=== PATIENT | female | born 1990 | race Caucasian/White ===

== ENCOUNTER 2023-08-16 15:29 | Inpatient (IN) | payer MEDICAID ==
[~2023-08-16] VITALS: Ht 157.5 cm; Wt 75.7 kg
[2023-08-16] MEDS: HYDRALAZINE 20MG/ML VIAL IV ONE (16:27)
[2023-08-16] MEDS: ASPIRIN 81MG TABLET PO ONE (16:27)
[2023-08-16 16:52] LABS: BASOPHILS % 0.4 % (0.0-2.0); DIFFERENTIAL COMMENT 0; EOSINOPHILS % 1.7 % (0.0-5.0); HEMATOCRIT. 34.8 % (36.0-48.0); HEMOGLOBIN. 11.4 g/dL (12.0-16.0); LYMPHOCYTES % 25.1 % (20.0-50.0); MEAN CORPUSCULAR HEMOGLOBIN 25.8 pg (28.0-32.0); MEAN CORPUSCULAR HGB CONC 32.6 g/dL (31.0-37.0); MEAN PLATELET VOLUME 8.7 fl (7.4-10.4); MONOCYTES % 6.8 % (2.0-8.0); PLATELET 340 x1000/uL (130-400); RED BLOOD CELL COUNT 4.41 mill/uL (4.2-5.4); RED CELL DISTRIBUTION WIDTH 16.5 % (11.6-14.6)
[2023-08-16 16:56] LABS: CHLORIDE 105 mEq/L (98-107); POTASSIUM 3.4 mEq/L (3.5-5.1); SODIUM 138 mEq/L (136-145)
[2023-08-16 16:57] LABS: CARBON DIOXIDE 28 mEq/L (21-32)
[2023-08-16 16:58] LABS: CALCIUM 9.2 mg/dL (8.7-10.4)
[2023-08-16 17:01] LABS: PROTHROMBIN TIME 10.7 sec (9.6-11.0)
[2023-08-16 17:02] LABS: CREATININE 1.1 mg/dL (0.6-1.0); GLUCOSE 101 mg/dL (70-105); UREA NITROGEN BLOOD 17 mg/dL (9-23)
[2023-08-16 17:10] LABS: TROPONIN I HIGH SENSITIVITY 38 ng/L (3.0-34)
[2023-08-16 18:26] LABS: TROPONIN I HIGH SENSITIVITY 41 ng/L (3.0-34)
[2023-08-16] MEDS ORDERED: GUAIFENESIN 200MG/10ML SUGAR FREE UDC PO PRN (19:00)
[2023-08-16] MEDS ORDERED: MAGNESIUM/ALUMINUM HYDROXIDE/SIMETHICONE 30ML UDC PO PRN (19:00)
[2023-08-16] MEDS ORDERED: IPRATROPIUM/ALBUTEROL 0.5-3(2.5)MG/3ML NEB HHN PRN (19:00)
[2023-08-16] MEDS ORDERED: DOCUSATE SODIUM 100MG CAPSULE PO PRN (19:00)
[2023-08-16] MEDS ORDERED: ACETAMINOPHEN 325MG TABLET PO PRN (19:00)
[2023-08-16] MEDS ORDERED: CLONIDINE 0.1MG TABLET PO PRN (19:00)
[2023-08-16] MEDS ORDERED: NALOXONE HCL 0.4MG/ML VIAL IV PRN (19:15)
[2023-08-16] MEDS: POTASSIUM CHLORIDE 20MEQ TABLET SR PO NR (19:15)
[2023-08-16] MEDS: ENOXAPARIN 40MG/0.4ML SYR SUBCUT SCH (20:56)
[2023-08-16] MEDS: FAMOTIDINE 20MG TABLET PO SCH (20:58)
[2023-08-16] MEDS: ONDANSETRON HCL 4MG/2ML INJ IV PRN (20:59)
[2023-08-16] MEDS: HYDRALAZINE 20MG/ML VIAL IV PRN (21:08)
[2023-08-16 21:29] LABS: TROPONIN I HIGH SENSITIVITY 40 ng/L (3.0-34)
[2023-08-16 23:00] VITALS: BP 181/108; PULSE 83; RESP 18; TEMP 97
[2023-08-17] VITALS (7 sets, daily range): BP systolic 100–184; BP diastolic 54–109; PULSE 62–86; RESP 18–19; TEMP 97–98.2
[2023-08-17] MEDS: HYDROCODONE/ACETAMINOPHEN 5/325MG TABLET PO PRN (05:58)
[2023-08-17 06:54] LABS: BASOPHILS % 0.2 % (0.0-2.0); DIFFERENTIAL COMMENT 0; HEMATOCRIT. 36.6 % (36.0-48.0); HEMOGLOBIN. 11.7 g/dL (12.0-16.0); LYMPHOCYTES % 10.1 % (20.0-50.0); MEAN CORPUSCULAR HEMOGLOBIN 25.6 pg (28.0-32.0); MEAN CORPUSCULAR VOLUME 79.8 fL (81.0-99.0); MEAN PLATELET VOLUME 9.7 fl (7.4-10.4); MONOCYTES % 2.3 % (2.0-8.0); NEUTROPHILS % 87.4 % (40.0-76.0); PLATELET 335 x1000/uL (130-400); RED BLOOD CELL COUNT 4.58 mill/uL (4.2-5.4); RED CELL DISTRIBUTION WIDTH 17.3 % (11.6-14.6); WHITE BLOOD COUNT 15.3 x1000/uL (4.5-11.0)
[2023-08-17 07:02] LABS: CARBON DIOXIDE 18 mEq/L (21-32); CHLORIDE 103 mEq/L (98-107); POTASSIUM 3.3 mEq/L (3.5-5.1); SODIUM 137 mEq/L (136-145)
[2023-08-17 07:03] LABS: CALCIUM 9.5 mg/dL (8.7-10.4)
[2023-08-17 07:07] LABS: CREATININE 1.3 mg/dL (0.6-1.0); GLUCOSE 168 mg/dL (70-105)
[2023-08-17 07:08] LABS: ALANINE AMINOTRANSFERASE 24 IU/L (10-49); LDL CHOLESTEROL 158 mg/dL (5-100); PROTEIN TOTAL 7.6 g/dL (6.0-8.3); THYROID STIMULATING HORMONE 0.93 uIU/mL (0.55-4.78); TRIGLYCERIDE 228 mg/dL (0-150); UREA NITROGEN BLOOD 16 mg/dL (9-23)
[2023-08-17 07:09] LABS: ALBUMIN 4.4 g/dL (3.2-4.8); ASPARTATE AMINOTRANSFERASE 18 IU/L (<34)
[2023-08-17 07:10] LABS: BILIRUBIN TOTAL 0.5 mg/dL (0.1-1.0); CHOLESTEROL 224 mg/dL (<200); CREATINE KINASE 86 IU/L (34-145); HDL CHOLESTEROL 43 mg/dL (>65); PHOSPHORUS 3.8 mg/dL (2.5-4.9)
[2023-08-17 08:50] LABS: TROPONIN I HIGH SENSITIVITY 37 ng/L (3.0-34)
[2023-08-17] MEDS ORDERED: AMLODIPINE 10MG TABLET PO SCH (09:00)
[2023-08-17] MEDS: METOPROLOL TARTRATE 50MG TABLET PO SCH (09:09)
[2023-08-17] MEDS: ENOXAPARIN 60MG/0.6ML SYR SUBCUT SCH (09:47)
[2023-08-17] MEDS: ASPIRIN 81MG TABLET PO SCH (09:47)
[2023-08-17] MEDS: CLONIDINE 0.2MG TABLET PO PRN (10:59)
[2023-08-17] MEDS: ACETAMINOPHEN 325MG TABLET PO PRN (11:02)
[2023-08-17 11:38] LABS: HCG SCREEN NEGATIVE
[2023-08-17 11:46] LABS: T4 FREE 1.61 ng/dL (0.89-1.76)
[2023-08-17 12:52] LABS: TROPONIN I HIGH SENSITIVITY 1044 ng/L (3.0-34)
[2023-08-17 16:27] LABS: CLARITY URINE CLOUDY (CLEAR); COLOR URINE YELLOW (YELLOW); GLUCOSE URINE NEGATIVE (NEGATIVE); KETONES URINE 1+ (NEGATIVE); LEUKOCYTE ESTERASE URINE NEGATIVE (NEGATIVE); NITRITE URINE NEGATIVE (NEGATIVE); OCCULT BLOOD URINE 2+ (NEGATIVE); PH URINE 6.5 (4.5-8.0); PROTEIN URINE 3+ (NEGATIVE); UROBILINOGEN URINE 0.2 E.U./dL (0.2-1.0)
[2023-08-17] MEDS: PANTOPRAZOLE SODIUM 40 MG/VIAL IV SCH (16:45)
[2023-08-17] MEDS: ASPIRIN 325MG EC TABLET PO NR (16:45)
[2023-08-17 17:07] LABS: *AMPHETAMINES SCREEN URINE NEGATIVE (NEGATIVE)
[2023-08-17 17:08] LABS: *BARBITURATES SCREEN URINE NEGATIVE (NEGATIVE); *BENZODIAZEPINES SCREEN URINE NEGATIVE (NEGATIVE); *COCAINE SCREEN URINE NEGATIVE (NEGATIVE); ECSTASY MDMA SCREEN URINE NEGATIVE (NEGATIVE); METHADONE URINE SCREEN NEGATIVE (NEGATIVE); OPIATES URINE SCREEN PRESUMPTIVE POSITIVE (NEGATIVE); PHENCYCLIDINE URINE SCREEN NEGATIVE (NEGATIVE)
[2023-08-17 17:09] LABS: CREATININE URINE RANDOM 154.2 mg/dL
[2023-08-17 18:00] LABS: CARBON DIOXIDE 24 mEq/L (21-32); CHLORIDE 101 mEq/L (98-107); POTASSIUM 3.9 mEq/L (3.5-5.1); SODIUM 138 mEq/L (136-145)
[2023-08-17 18:01] LABS: CALCIUM 8.9 mg/dL (8.7-10.4)
[2023-08-17 18:05] LABS: GLUCOSE 134 mg/dL (70-105)
[2023-08-17 18:06] LABS: UREA NITROGEN BLOOD 21 mg/dL (9-23)
[2023-08-17 18:07] LABS: CREATINE KINASE 176 IU/L (34-145)
[2023-08-17 18:08] LABS: CREATININE 2.6 mg/dL (0.6-1.0); PHOSPHORUS 5.2 mg/dL (2.5-4.9)
[2023-08-17 18:52] LABS: HYALINE CASTS URINE 0-5 /lpf; SQUAMOUS EPITHELIAL CELL URINE 3+ /lpf (RARE/1+)
[2023-08-17 18:53] LABS: URIC ACID CRYSTALS URINE 1+ /lpf
[2023-08-17 18:54] LABS: RBC URINE 0-2 /hpf (0-2); WBC URINE 0-2 /hpf (0-2)
[2023-08-17 18:55] LABS: BACTERIA URINE 2+
[2023-08-17] MEDS: ATORVASTATIN CALCIUM 40MG TABLET PO SCH (21:02)
[2023-08-17 23:20] LABS: TROPONIN I HIGH SENSITIVITY 5400 ng/L (3.0-34)
[2023-08-18] VITALS (7 sets, daily range): BP systolic 103–139; BP diastolic 54–89; PULSE 52–79; RESP 17–18; TEMP 97.3–98.8
[2023-08-18] MEDS: SODIUM CHLORIDE 0.9% 500 ML IV ONE (01:15)
[2023-08-18 06:43] LABS: BASOPHILS % 0.3 % (0.0-2.0); DIFFERENTIAL COMMENT 0; EOSINOPHILS % 1.3 % (0.0-5.0); HEMATOCRIT. 32.9 % (36.0-48.0); HEMOGLOBIN. 10.9 g/dL (12.0-16.0); LYMPHOCYTES % 35.4 % (20.0-50.0); MEAN CORPUSCULAR HEMOGLOBIN 26.3 pg (28.0-32.0); MEAN CORPUSCULAR VOLUME 79.8 fL (81.0-99.0); MEAN PLATELET VOLUME 9.2 fl (7.4-10.4); PLATELET 330 x1000/uL (130-400); RED BLOOD CELL COUNT 4.13 mill/uL (4.2-5.4); RED CELL DISTRIBUTION WIDTH 17.8 % (11.6-14.6); WHITE BLOOD COUNT 9.5 x1000/uL (4.5-11.0)
[2023-08-18 07:02] LABS: POTASSIUM 3.7 mEq/L (3.5-5.1)
[2023-08-18 07:03] LABS: CALCIUM 8.9 mg/dL (8.7-10.4)
[2023-08-18 07:08] LABS: CREATININE 2.5 mg/dL (0.6-1.0)
[2023-08-18] MEDS ORDERED: DEXT 5%/0.45% NACL 1000ML 1,000 ML IV SCH (08:00)
[2023-08-18] MEDS: SODIUM CHLORIDE 0.9% 1,000 ML IV ONE (09:02)
[2023-08-18] MEDS: CLOPIDOGREL 75MG TABLET PO NR (10:19)
[2023-08-18] MEDS: SODIUM CHLORIDE 0.9% 1,000 ML IV SCH (11:00)
[2023-08-18 17:38] LABS: CREATININE URINE RANDOM 104.7 mg/dL
[2023-08-19] VITALS: BP 124/71; PULSE 75; RESP 17; TEMP 97.8
[2023-08-19 00:35] LABS: TROPONIN I HIGH SENSITIVITY 3775 ng/L (3.0-34)
[2023-08-19 04:00] VITALS: BP 128/84; PULSE 76; RESP 18; TEMP 98.5
[2023-08-19 05:57] LABS: POTASSIUM 3.9 mEq/L (3.5-5.1)
[2023-08-19 05:58] LABS: CALCIUM 8.4 mg/dL (8.7-10.4)
[2023-08-19 06:32] LABS: BASOPHILS % 0.3 % (0.0-2.0); EOSINOPHILS % 1.5 % (0.0-5.0); HEMATOCRIT. 31.7 % (36.0-48.0); HEMOGLOBIN. 10.1 g/dL (12.0-16.0); LYMPHOCYTES % 33.7 % (20.0-50.0); MEAN CORPUSCULAR HEMOGLOBIN 25.7 pg (28.0-32.0); MEAN CORPUSCULAR HGB CONC 31.7 g/dL (31.0-37.0); MEAN CORPUSCULAR VOLUME 80.9 fL (81.0-99.0); MEAN PLATELET VOLUME 9.4 fl (7.4-10.4); MONOCYTES % 7.8 % (2.0-8.0); NEUTROPHILS % 56.7 % (40.0-76.0); PLATELET 286 x1000/uL (130-400); RED BLOOD CELL COUNT 3.92 mill/uL (4.2-5.4)
[2023-08-19 06:39] LABS: CREATININE 1.4 mg/dL (0.6-1.0)
[2023-08-19 08:00] VITALS: BP 187/117; PULSE 54; RESP 17; TEMP 97.8
[2023-08-19] MEDS: CLOPIDOGREL 75MG TABLET PO SCH (08:28)
[2023-08-19] MEDS: ENOXAPARIN 100MG/ML SYR SUBCUT SCH (08:29)
[2023-08-19] MEDS ORDERED: LOSARTAN 50 MG TABLET PO SCH (09:00)
[2023-08-19] MEDS: CLONIDINE 0.2MG TABLET PO PRN (09:13)
[2023-08-19] MEDS: AMLODIPINE 10MG TABLET PO SCH (11:09)
[2023-08-19] MEDS: ISOSORBIDE MONONITRATE 30MG TABLET SR 24HR PO SCH (11:09)
[2023-08-19 12:00] VITALS: BP 139/87; PULSE 60; RESP 17; TEMP 97.8
[2023-08-19] MEDS ORDERED: HYDRALAZINE HCL 50MG TABLET PO SCH (14:00)
[2023-08-19 15:54] LABS: TROPONIN I HIGH SENSITIVITY 4247 ng/L (3.0-34)
[2023-08-19 16:00] VITALS: BP 130/83; PULSE 66; RESP 18; TEMP 98.2
[2023-08-19 20:00] VITALS: BP 126/79; PULSE 76; RESP 17; TEMP 98.5
[2023-08-19] MEDS ORDERED: ENOXAPARIN 80MG/0.8ML SYR SUBCUT SCH (21:00)
[2023-08-20] VITALS: BP 127/70; PULSE 72; RESP 18; TEMP 98.7
[2023-08-20 01:23] LABS: TROPONIN I HIGH SENSITIVITY 4872 ng/L (3.0-34)
[2023-08-20 04:00] VITALS: BP 123/86; PULSE 74; RESP 17; TEMP 97.8
[2023-08-20 07:06] LABS: BASOPHILS % 0.3 % (0.0-2.0); EOSINOPHILS % 1.3 % (0.0-5.0); HEMOGLOBIN. 9.5 g/dL (12.0-16.0); LYMPHOCYTES % 28.8 % (20.0-50.0); MEAN CORPUSCULAR HEMOGLOBIN 25.6 pg (28.0-32.0); MEAN CORPUSCULAR HGB CONC 31.8 g/dL (31.0-37.0); MEAN CORPUSCULAR VOLUME 80.6 fL (81.0-99.0); MEAN PLATELET VOLUME 9.4 fl (7.4-10.4); MONOCYTES % 8.3 % (2.0-8.0); NEUTROPHILS % 61.3 % (40.0-76.0); PLATELET 278 x1000/uL (130-400); RED BLOOD CELL COUNT 3.72 mill/uL (4.2-5.4); RED CELL DISTRIBUTION WIDTH 16.9 % (11.6-14.6); WHITE BLOOD COUNT 8.6 x1000/uL (4.5-11.0)
[2023-08-20 07:11] LABS: POTASSIUM 4.1 mEq/L (3.5-5.1)
[2023-08-20 07:12] LABS: CALCIUM 8.5 mg/dL (8.7-10.4)
[2023-08-20 07:16] LABS: CREATININE 1.1 mg/dL (0.6-1.0)
[2023-08-20 08:00] VITALS: BP 178/96; PULSE 60; RESP 22; TEMP 97.9
[2023-08-20] MEDS ORDERED: LIDOCAINE HCL 1% 20ML VIAL (Pyxis) INJ ONE (09:09)
[2023-08-20] MEDS ORDERED: HEPARIN 1000 UNITS/ML 10ML ONE (09:09)
[2023-08-20] MEDS ORDERED: IODIXANOL 320MG/ML 100 ML BOTTLE IV ONE (09:09)
[2023-08-20 09:12] LABS: ANTI-NUCLEAR ANTIBODIES DIRECT Negative (Negative); COMPLEMENT C3 123 mg/dL (82-167); COMPLEMENT C4 28 mg/dL (12-38)
[2023-08-20] MEDS ORDERED: FENTANYL CITRATE/PF 50MCG/ML 2ML VIAL ONE (09:51)
[2023-08-20] MEDS ORDERED: VERAPAMIL HCL 2.5 MG/1 ML 2ML VIAL IV ONE (09:51)
[2023-08-20] MEDS ORDERED: MIDAZOLAM HCL 2 MG/2 ML VIAL ONE (09:51)
[2023-08-20] MEDS ORDERED: DIPHENHYDRAMINE 50MG/ML VIAL ONE (09:56)
[2023-08-20] MEDS: SODIUM CHLORIDE 0.45% 1,000 ML IV SCH (10:00)
[2023-08-20] MEDS ORDERED: HYDRALAZINE 20MG/ML VIAL ONE (10:36)
[2023-08-20] MEDS ORDERED: ACETAMINOPHEN 325MG TABLET PO PRN (11:30)
[2023-08-20] MEDS ORDERED: SODIUM CHLORIDE 0.45% 250 ML IV SCH (11:30)
[2023-08-20] MEDS ORDERED: ATROPINE SULFATE 1MG/10ML SYR IV PRN (11:30)
[2023-08-20 16:00] VITALS: BP 134/78; PULSE 64; RESP 16; TEMP 97.9
[2023-08-20 20:00] VITALS: BP 131/84; PULSE 75; RESP 18; TEMP 98.6
[2023-08-21] VITALS: BP 127/75; PULSE 82; RESP 18; TEMP 98.5
[2023-08-21 04:00] VITALS: BP 124/85; PULSE 75; RESP 17; TEMP 98.6
[2023-08-21] MEDS: CARVEDILOL 3.125 MG TABLET PO SCH (07:15)
[2023-08-21 07:39] LABS: CHLORIDE 103 mEq/L (98-107); POTASSIUM 4.1 mEq/L (3.5-5.1); SODIUM 136 mEq/L (136-145)
[2023-08-21 07:40] LABS: CALCIUM 9.1 mg/dL (8.7-10.4); CARBON DIOXIDE 25 mEq/L (21-32)
[2023-08-21 07:45] LABS: CREATININE 1.2 mg/dL (0.6-1.0); GLUCOSE 94 mg/dL (70-105)
[2023-08-21 07:46] LABS: UREA NITROGEN BLOOD 12 mg/dL (9-23)
[2023-08-21 07:48] LABS: PHOSPHORUS 3.5 mg/dL (2.5-4.9)
[2023-08-21 08:00] VITALS: BP 154/87; PULSE 58; RESP 18; TEMP 97.5
[2023-08-21] MEDS: ASPIRIN 81MG TABLET PO SCH (08:21)
[2023-08-21 10:33] LABS: BASOPHILS % 0.5 % (0.0-2.0); EOSINOPHILS % 1.7 % (0.0-5.0); HEMATOCRIT. 34.2 % (36.0-48.0); LYMPHOCYTES % 19.8 % (20.0-50.0); MEAN CORPUSCULAR HEMOGLOBIN 26.1 pg (28.0-32.0); MEAN CORPUSCULAR HGB CONC 32.5 g/dL (31.0-37.0); MEAN PLATELET VOLUME 8.9 fl (7.4-10.4); MONOCYTES % 6.7 % (2.0-8.0); NEUTROPHILS % 71.3 % (40.0-76.0); PLATELET 300 x1000/uL (130-400); RED BLOOD CELL COUNT 4.26 mill/uL (4.2-5.4); RED CELL DISTRIBUTION WIDTH 17.2 % (11.6-14.6); WHITE BLOOD COUNT 7.7 x1000/uL (4.5-11.0)
[2023-08-21 10:35] LABS: HEMOGLOBIN. 11.1 g/dL (12.0-16.0); MEAN CORPUSCULAR VOLUME 80.3 fL (81.0-99.0)
[2023-08-21] MEDS: APIXABAN 5 MG TABLET PO SCH (10:59)
[2023-08-21] MEDS ORDERED: FAMO20TA8 PO (11:41)
[2023-08-21] MEDS ORDERED: ATOR20TA PO (11:41)
[2023-08-21] MEDS ORDERED: APIX5TAB PO (11:41)
[2023-08-21] MEDS ORDERED: COR3 PO (11:41)
[2023-08-21] MEDS ORDERED: AMLO10TA80 PO (11:41)
[2023-08-21 11:45] VITALS: BP 122/72; PULSE 60; TEMP 97.3; O2SAT 98
[2023-08-21 12:00] VITALS: BP 122/72; PULSE 60; RESP 18; TEMP 97.3
[2023-08-21] MEDS ORDERED: TOPUD PO (12:28)
[2023-08-21 15:08] LABS: HEPATITIS C AB NON REACTIVE (Neg) (Negative)
[2023-08-21 17:16] LABS: FOLIC ACID (FOLATE) SERUM > 20.00 ng/mL (>5.38); VITAMIN B12 SERUM 441 pg/mL (211-911)
[2023-08-21] MEDS ORDERED: ATORVASTATIN CALCIUM 20MG TABLET PO SCH (21:00)
== END 2023-08-21 15:39 | disposition home or self-care (01) | DRG 192 ==
LOC: ER 15:29 → EDBEDREQTM 17:43 → EDBEDREQ 17:43 → 7EST 22:32
PROVIDERS: ADMIT Internal Medicine; ATTEND Internal Medicine
PROC: 4A023N7 Measurement of Cardiac Sampling and Pressure, Left Heart, Percutaneous Approach (ICD-10-PCS; principal; 2023-08-20)
PROC: B211YZZ Fluoroscopy of Multiple Coronary Arteries using Other Contrast (ICD-10-PCS; 2023-08-20)
DX: I16.1 Hypertensive emergency (principal); I21.4 Non-ST elevation (NSTEMI) myocardial infarction; E87.20 Acidosis, unspecified; N17.9 Acute kidney failure, unspecified; N18.9 Chronic kidney disease, unspecified; I12.9 Hypertensive chronic kidney disease with stage 1 through stage 4 chronic kidney disease, or unspecified chronic kidney disease; D72.829 Elevated white blood cell count, unspecified; D64.9 Anemia, unspecified; E87.6 Hypokalemia; Z79.82 Long term (current) use of aspirin; E78.5 Hyperlipidemia, unspecified; F17.200 Nicotine dependence, unspecified, uncomplicated; I48.0 Paroxysmal atrial fibrillation; E87.5 Hyperkalemia; I25.10 Atherosclerotic heart disease of native coronary artery without angina pectoris; Z20.822 Contact with and (suspected) exposure to COVID-19; Z79.02 Long term (current) use of antithrombotics/antiplatelets
CPT/HCPCS: 36415; 71045; 76770; 78582; 80048; 80053; 80061; 80305; 81003; 82550; 82570; 82607; 82746; 83036; 83735; 83880; 84100; 84156; 84300; 84439; 84443; 84484; 84703; 85025; 85379; 86038; 86160; 86592; 86705; 87340; 87426; 93005; 93306; 93458; 93970; 99291; A9558; C1769; C1887; C1893; C9113; J0360; J1200; J1644; J1650; J2250; J2405; J3010; J3490; J7030; Q9967